=== PATIENT | male | born 1970 | race African-American/Black ===

== ENCOUNTER 2023-03-18 09:01 | Emergency (ER) | payer OTHER ==
--- NOTE | 2023-03-18 10:11 | RAD REPORT ---
EXAM DESCRIPTION: RAD - Hand Right 3 View - 03/18/2023 9:51 am CLINICAL HISTORY: PAIN COMPARISON: No comparisons FINDINGS/IMPRESSION: No acute fracture. No malalignment. Degenerative changes are present at the fir st MCP joint. Possible small erosion at the fourth proximal phalanx at the MCP joint.
--- NOTE | 2023-03-18 10:12 | RAD REPORT ---
EXAM DESCRIPTION: RAD - Wrist Right 2 View - 03/18/2023 9:51 am CLINICAL HISTORY: PAIN COMPARISON: No comparisons FINDINGS/IMPRESSION: No acute fracture. No malalignment. No significant focal degenerative changes.
--- NOTE | 2023-03-18 10:25 | EDPHYS ---
Physician Documentation [facility] Name: True Patel Age: 52 yrs Sex: Male : 1970 Arrival Date: 03/18/2023 Time: 09:01 Bed 17 Private MD: ED Physician Kimberley Myers HPI: 03/18 09:12 This 52 yrs old Male presents to ER via [employer] with complaints of Hand Injury. sp3 09:12 52-year-old male with history of hypertension presents with right hand swelling and sp3 pain secondary to fall injury in the restroom at the local [facility]. Patient states that happened 2 days ago and he was able to tell the local staff who put him in a sling. Symptoms have worsened and he now presents here with present staff. No other secondary injury reported. He also reports slight numbness and tingling in the fourth and fifth digits. ROS otherwise negative. No proximal injury noted.. Historical: - Allergies: 09:10 No Known Allergies; aa5 - PMHx: 09:10 Hypertensive disorder; aa5 - PSHx: 09:10 right hand with metal; aa5 - Immunization history:: Adult Immunizations unknown. - Social history:: Smoking status: Patient reports the use of cigarette tobacco products, 2-3 cigarettes a day . ROS: 09:13 Constitutional: Negative for fever, chills, and weight loss, Eyes: Negative for injury, sp3 pain, redness, and discharge, Neck: Negative for injury, pain, and swelling, Cardiovascular: Negative for chest pain, palpitations, and edema, Respiratory: Negative for shortness of breath, cough, wheezing, and pleuritic chest pain, Abdomen/GI: Negative for abdominal pain, nausea, vomiting, diarrhea, and constipation, Back: Negative for injury and pain, Skin: Negative for injury, rash, and discoloration, Neuro: Negative for headache, weakness, numbness, tingling, and seizure, Psych: Negative for depression, anxiety, suicide ideation, homicidal ideation, and hallucinations, Allergy/Immunology: Negative for hives, rash, and allergies, Endocrine: Negative for neck swelling, polydipsia, polyuria, polyphagia, and marked weight changes, Hematologic/Lymphatic: Negative for swollen nodes, abnormal bleeding, and unusual bruising. 09:13 All other systems are negative. Exam: 09:14 Constitutional: This is a well developed, well nourished patient who is awake, alert, sp3 and in no acute distress. Head/Face: Normocephalic, atraumatic. Neck: Trachea midline, no thyromegaly or masses palpated, and no cervical lymphadenopathy. Supple, full range of motion without nuchal rigidity, or vertebral point tenderness. No Meningismus. Chest/axilla: Normal chest wall appearance and motion. Nontender with no deformity. No lesions are appreciated. Cardiovascular: Regular rate and rhythm with a normal S1 and S2. No gallops, murmurs, or rubs. Normal PMI, no JVD. No pulse deficits. Respiratory: Lungs have equal breath sounds bilaterally, clear to auscultation and percussion. No rales, rhonchi or wheezes noted. No increased work of breathing, no retractions or nasal flaring. Abdomen/GI: Soft, non-tender, with normal bowel sounds. No distension or tympany. No guarding or rebound. No evidence of tenderness throughout. Back: No spinal tenderness. No costovertebral tenderness. Full range of motion. Neuro: Awake and alert, GCS 15, oriented to person, place, time, and situation. Cranial nerves II-XII grossly intact. Motor strength 5/5 in all extremities. Sensory grossly intact. Cerebellar exam normal. Normal gait. Psych: Awake, alert, with orientation to person, place and time. Behavior, mood, and affect are within normal limits. 09:14 Musculoskeletal/extremity: Significant swelling of the right hand and the dorsal region as well as the palm with pain to palpation diffuse particularly along the fourth and fifth proximal phalanges and proximal hand bones. Capillary refill distally is normal. Radial pulses present. Mild pain at the wrist as well. No pain at elbow on supination pronation, flexion or extension. Shoulder and proximal is also normal.. Vital Signs: 09:08 BP 149 / 99; Pulse 72; Resp 18 S; Temp 98.4(O); Pulse Ox 100% on R/A; Weight 74.84 kg aa5 (R); Height 5 ft. 10 in. ; Pain 8/10; 09:08 Body Mass Index 23.67 (74.84 kg, 177.8 cm) aa5 09:08 Pain Scale: Adult aa5 MDM: 09:10 Patient medically screened. sp3 09:15 Data reviewed: vital signs, nurses notes, radiologic studies. ED course: 52-year-old sp3 male with right hand injury/trauma. We will start with x-rays of the hand and wrist and disposition from there.. 10:23 ED course: Patient has no acute fracture. Only soft tissue injuries. Will place in a sp3 Velcro wrist splint and a sling and administer Bowie here. Patient will go home on diclofenac and follow-up with present physician.. 03/18 09:10 Order name: Hand Right 3 View XRAY; Complete Time: 10:19 sp3 03/18 09:10 Order name: Wrist Right 2 View XRAY; Complete Time: 10:19 sp3 03/18 09:10 Order name: NPO; Complete Time: 09:15 sp3 03/18 10:20 Order name: Sling; Complete Time: 10:42 sp3 03/18 10:21 Order name: Wrist Splint: Velcro; Complete Time: 10:42 sp3 Administered Medications: 10:40 Drug: HYDROcodone-acetaminophen PO 5 mg-325 mg 2 tabs {Note: administered with food .} aa5 Route: PO; 10:42 Follow up: Response: Medication administered at discharge. aa5 Disposition Summary: 03/18/23 10:24 Discharge Ordered Location: Home sp3 Condition: Stable sp3 Diagnosis - Right hand contusion, soft tissue swelling, right wrist sprain sp3 Followup: sp3 - With: Private Physician - When: Upon discharge from the Emergency Department - Reason: Continuance of care Discharge Instructions: - Discharge Summary Sheet sp3 - Hand Contusion sp3 Forms: - Medication Reconciliation Form sp3 - Thank You Letter sp3 - Antibiotic Education sp3 - Prescription Opioid Use sp3 - Patient Portal Instructions sp3 - Leadership Thank You Letter sp3 Prescriptions: - Diclofenac Sodium 75 mg Oral Tablet Sustained Release - take 1 tablet by ORAL route 2 times per day; 30 tablet; Refills: 0, Product sp3 Selection Permitted Signatures: Dispatcher [employer] Darcy Pacheco, RN RN aa5 Kimberley Myers MD MD sp3
--- NOTE | 2023-03-18 10:25 | ER ---
Nurse's Notes [facility] [place] Name: True Patel Age: 52 yrs Sex: Male : 1970 Arrival Date: 03/18/2023 Time: 09:01 Bed 17 Private MD: Diagnosis: Right hand contusion, soft tissue swelling, right wrist sprain Presentation: 03/18 09:08 Chief complaint: Pt states "I fell on in the shower and hit my hand on a aa5 broom". Pt c/o pain and swelling to right hand extending down to right wrist. Coronavirus screen: At this time, the client does not indicate any symptoms associated with coronavirus-19. Ebola Screen: Patient denies travel to an Ebola-affected area in the 21 days before illness onset. Initial Sepsis Screen: Does the patient meet any 2 criteria? No. Patient's initial sepsis screen is negative. Does the patient have a suspected source of infection? No. Patient's initial sepsis screen is negative. Risk Assessment: Do you want to hurt yourself or someone else? Patient reports no desire to harm self or others. Onset of symptoms was February 2023. 09:08 Acuity: NISHANT 3 aa5 09:08 Method Of Arrival: [employer]: [facility] unit aa5 Historical: - Allergies: 09:10 No Known Allergies; aa5 - PMHx: 09:10 Hypertensive disorder; aa5 - PSHx: 09:10 right hand with metal; aa5 - Immunization history:: Adult Immunizations unknown. - Social history:: Smoking status: Patient reports the use of cigarette tobacco products, 2-3 cigarettes a day . Screenin:08 [place] ED Fall Risk Assessment (Adult) History of falling in the last 3 months, aa5 including since admission No falls in past 3 months (0 pts) Confusion or Disorientation No (0 pts) Intoxicated or Sedated No (0 pts) Impaired Gait No (0 pts) Mobility Assist Device Used No (0 pt) Altered Elimination No (0 pt) Score/Fall Risk Level 0 - 2 = Low Risk Oriented to surroundings, Maintained a safe environment, Educated pt \\T\\ family on fall prevention, incl call for assistance when getting out of bed. Abuse screen: Denies threats or abuse. Nutritional screening: No deficits noted. Tuberculosis screening: No symptoms or risk factors identified. Assessment: 09:08 General: Appears uncomfortable, Behavior is calm, cooperative. Pain: Complains of pain aa5 in right hand and right wrist Pain currently is 8 out of 10 on a pain scale. Quality of pain is described as shooting, tender, throbbing, Pain began 2-3 days ago. Is continuous. Neuro: Level of Consciousness is awake, alert, obeys commands, Oriented to person, place, time, situation. Cardiovascular: Patient's skin is warm and dry. Respiratory: Airway is patent Respiratory effort is even, unlabored, Respiratory pattern is regular, symmetrical. GI: No signs and/or symptoms were reported involving the gastrointestinal system. : No signs and/or symptoms were reported regarding the genitourinary system. EENT: No signs and/or symptoms were reported regarding the EENT system. Derm: Skin is dry, Skin is normal, Skin temperature is warm. Musculoskeletal: swelling noted to right hand (top of hand, fingers, and palmar aspect of hand) extending down to right wrist, dark purple with greenish bruising noted to palmar aspect of hand and top of hand, mild redness noted to right wrist. 09:08 Reassessment: handcuffs and ankle cuffs noted, pt accompanied by [facility] guards. . aa5 10:06 Reassessment: Awaiting x-ray results. . Neuro: Level of Consciousness is awake, alert, aa5 obeys commands, Oriented to person, place, time, situation. Respiratory: Airway is patent Respiratory effort is even, unlabored, Respiratory pattern is regular, symmetrical. Derm: Skin is dry, Skin is normal, Skin temperature is warm. 10:40 Neuro: Level of Consciousness is awake, alert, obeys commands, Oriented to person, aa5 place, time, situation. Respiratory: Airway is patent Respiratory effort is even, unlabored, Respiratory pattern is regular, symmetrical. Derm: Skin is dry, Skin is normal, Skin temperature is warm. Vital Signs: 09:08 BP 149 / 99; Pulse 72; Resp 18 S; Temp 98.4(O); Pulse Ox 100% on R/A; Weight 74.84 kg aa5 (R); Height 5 ft. 10 in. ; Pain 8/10; 09:08 Body Mass Index 23.67 (74.84 kg, 177.8 cm) aa5 09:08 Pain Scale: Adult aa5 ED Course: 09:08 Patient arrived in ED. aa5 09:08 Arm band placed on Patient placed in an exam room, on a stretcher. aa5 09:08 Patient has correct armband on for positive identification. Bed in low position. Call aa5 light in reach. Side rails up X2. 09:09 Kimberley Myers MD is Attending Physician. sp3 09:10 Triage completed. aa5 09:15 Darcy Cook RN is Primary Nurse. aa5 09:53 Hand Right 3 View XRAY In Process Unspecified. EDMS 09:53 Wrist Right 2 View XRAY In Process Unspecified. EDMS 10:40 No provider procedures requiring assistance completed. Patient did not have IV access aa5 during this emergency room visit. Administered Medications: 10:40 Drug: HYDROcodone-acetaminophen PO 5 mg-325 mg 2 tabs {Note: administered with food .} aa5 Route: PO; 10:42 Follow up: Response: Medication administered at discharge. aa5 Medication: 10:40 VIS not applicable for this client. aa5 Outcome: 10:24 Discharge ordered by . sp3 10:40 Discharged to [employer] aa5 10:40 Condition: stable 10:40 Discharge instructions given to patient, Instructed on discharge instructions, follow up and referral plans. medication usage, Demonstrated understanding of instructions, follow-up care, medications, Prescriptions given X 1. 10:43 Patient left the ED. aa5 Signatures: Dispatcher [employer] Darcy Pacheco RN RN aa5 Kimberley Myers MD MD sp3
[2023-03-18] MEDS ORDERED: HYDROCODONE/APAP 5/325 MG TAB ONE ×2 (10:36→10:40)
[2023-03-18 10:48] VITALS: BP 149/99; TEMP 98.4; O2SAT 100
== END 2023-03-18 10:43 | disposition home or self-care (01) ==
LOC: ER 09:01
DX: S63.501A Unspecified sprain of right wrist, initial encounter (principal); S60.221A Contusion of right hand, initial encounter; R22.9 Localized swelling, mass and lump, unspecified; I10 Essential (primary) hypertension; F17.210 Nicotine dependence, cigarettes, uncomplicated
CPT/HCPCS: 99283